=== PATIENT | female | born 1975 | race Caucasian/White ===

== ENCOUNTER 2025-01-16 10:09 | Inpatient (IN) | payer SELFPAY ==
[~2025-01-16] VITALS: Ht 170.1 cm; Wt 76.7 kg
[2025-01-16] VITALS (8 sets, daily range): BP systolic 121–179; BP diastolic 64–100
[~2025-01-16 10:09] MED LIST: ELIMITE 5%60 GM PO; VICODIN 5/500 505 MG PO
[2025-01-16] MEDS ORDERED: SODIUM CHLORIDE 0.9% 1,000 ML IV ONE ×2 (10:35→14:10)
[2025-01-16] MEDS ORDERED: Ondansetron Hydrochloride 4 MG/2 ML VIAL IV ONE ×3 (10:35→15:20)
[2025-01-16 10:54] LABS: BASO # 0.0 10*3/uL (0.0-0.1); BASO % 0.3 % (0.0-1.0); EOS # 0.1 10*3/uL (0.0-0.4); EOS % 0.5 % (1.0-4.0); MEAN CELL VOLUME 97.9 fl (81.0-99.0); MEAN CORPUSCULAR HGB 33.3 pg (27.0-31.0); MEAN PLATELET VOLUME 9.7 fl (9.6-12.3); MONO # 0.3 10*3/uL (0.1-1.0); MONO % 2.9 % (3.0-9.0); NEUT # 8.1 10*3/uL (2.3-7.9); NEUT % 76.3 % (47.0-73.0); NUCLEATED RED BLOOD CELL 0.0 % (0.0-0.0); NUCLEATED RED BLOOD CELL 0.0 10*3/uL (0.0-0.0); PLATELET COUNT AUTOMATED 274 10*3/uL (130-400); RED CELL DISTRI WIDTH 12.8 % (0-14.5)
[2025-01-16] MEDS ORDERED: IOHEXOL 300 MG/ML 100 ML VIAL IV ONE (10:55)
[2025-01-16 11:04] LABS: ACT PARTIAL THROMBO TIME 24.1 SECONDS (20.0-32.1)
[2025-01-16] MEDS ORDERED: diphenhydrAMINE hydrochloride 50 MG/ML VIAL IV ONE ×2 (11:10→20:00)
[2025-01-16] MEDS ORDERED: Metoclopramide Hydrochloride 10 MG/2 ML VIAL IV ONE ×2 (11:10→20:00)
[2025-01-16 11:15] LABS: BUN 10 mg/dl (9-23); SGPT/ALT 13 U/L (5-49)
[2025-01-16] MEDS ORDERED: Pantoprazole Sodium 80 MG,IV 1 EA in SYRINGE INFUSION 20 ML IV ONE (11:25)
[2025-01-16] MEDS ORDERED: Ondansetron Hydrochloride 4 MG/2 ML VIAL IV PRN (14:10)
[2025-01-16] MEDS ORDERED: BISACODYL 5 MG TAB PO PRN (14:10)
[2025-01-16] MEDS ORDERED: Acetaminophen/Hydrocodone 5 MG/325 MG TABLET PO PRN (14:10)
[2025-01-16] MEDS ORDERED: BISACODYL 10 MG SUPP R PRN (14:10)
[2025-01-16] MEDS ORDERED: ACETAMINOPHEN 325 MG TAB PO PRN (14:10)
[2025-01-16] MEDS ORDERED: ACETAMINOPHEN 650 MG SUPP R PRN (14:10)
[2025-01-16] MEDS ORDERED: TEMAZEPAM 15 MG CAP PO PRN (14:10)
[2025-01-16] MEDS ORDERED: Dexamethasone Sodium Phospha 4 MG/ML VIAL IV ONE (15:02)
[2025-01-16] MEDS ORDERED: PROPOFOL 200 MG/20 ML VIAL IV ONE (15:02)
[2025-01-16] MEDS ORDERED: Lidocaine Hydrochloride 2% 5 ML SDV IM ONE (15:02)
[2025-01-16] MEDS ORDERED: Ondansetron Hydrochloride 4 MG/2 ML VIAL ONE (15:36)
[2025-01-16] MEDS ORDERED: ACETAMINOPHEN 80 ML IV ONE (22:35)
[2025-01-17] VITALS: BP 153/70
[2025-01-17] MEDS ORDERED: SODIUM CHLORIDE 0.9% 1,000 ML IV SCH (05:05)
[2025-01-17 05:41] LABS: BUN 12 mg/dl (9-23); FREE T4 1.60 ng/dl (0.89-1.76); LDL CHOLESTEROL 107 mg/dL (9-159); SGPT/ALT 19 U/L (5-49)
[2025-01-17] MEDS ORDERED: SODIUM CHLORIDE 0.9% 1,000 ML IV ONE ×2 (05:44→23:10)
[2025-01-17 06:04] LABS: BASO # 0.0 10*3/uL (0.0-0.1); BASO % 0.1 % (0.0-1.0); EOS # 0.0 10*3/uL (0.0-0.4); EOS % 0.0 % (1.0-4.0); MEAN CELL VOLUME 96.9 fl (81.0-99.0); MEAN CORPUSCULAR HGB 33.2 pg (27.0-31.0); MEAN PLATELET VOLUME 10.4 fl (9.6-12.3); MONO # 1.0 10*3/uL (0.1-1.0); MONO % 6.7 % (3.0-9.0); NEUT # 10.9 10*3/uL (2.3-7.9); NEUT % 76.8 % (47.0-73.0); NUCLEATED RED BLOOD CELL 0.0 % (0.0-0.0); NUCLEATED RED BLOOD CELL 0.0 10*3/uL (0.0-0.0); PLATELET COUNT AUTOMATED 266 10*3/uL (130-400); RED CELL DISTRI WIDTH 12.9 % (0-14.5)
[2025-01-17 07:29] LABS: VITAMIN D, 25-HYDROXY 51.5 ng/mL (30-100)
[2025-01-17 08:00] VITALS: BP 124/68
[2025-01-17 12:00] VITALS: BP 136/72
[2025-01-17 16:00] VITALS: BP 134/65
[2025-01-17 20:00] VITALS: BP 138/75
[2025-01-17] MEDS ORDERED: SUCRALFATE 1 GM TAB PO SCH (23:05)
[2025-01-17] MEDS ORDERED: Promethazine Hydrochloride 25 MG/ML VIAL IV ONE (23:55)
[2025-01-18] VITALS (8 sets, daily range): BP systolic 128–194; BP diastolic 58–83
[2025-01-18 06:24] LABS: BASO # 0.0 10*3/uL (0.0-0.1); BASO % 0.2 % (0.0-1.0); EOS # 0.0 10*3/uL (0.0-0.4); EOS % 0.0 % (1.0-4.0); MEAN CELL VOLUME 99.2 fl (81.0-99.0); MEAN CORPUSCULAR HGB 33.1 pg (27.0-31.0); MEAN PLATELET VOLUME 10.7 fl (9.6-12.3); MONO # 0.4 10*3/uL (0.1-1.0); MONO % 3.0 % (3.0-9.0); NEUT # 11.0 10*3/uL (2.3-7.9); NEUT % 85.8 % (47.0-73.0); NUCLEATED RED BLOOD CELL 0.0 % (0.0-0.0); NUCLEATED RED BLOOD CELL 0.0 10*3/uL (0.0-0.0); PLATELET COUNT AUTOMATED 218 10*3/uL (130-400); RED CELL DISTRI WIDTH 12.9 % (0-14.5)
[2025-01-18] MEDS ORDERED: Metoclopramide Hydrochloride 10 MG/2 ML VIAL IV ONE (08:10)
[2025-01-18] MEDS ORDERED: hydrALAZINE hydrochloride 20 MG/ML VIAL IV ONE (17:50)
[2025-01-18] MEDS ORDERED: LISINOPRIL 5 MG TAB PO SCH (19:40)
[2025-01-19] VITALS: BP 137/78
[2025-01-19 06:39] LABS: BASO # 0.0 10*3/uL (0.0-0.1); BASO % 0.3 % (0.0-1.0); EOS # 0.1 10*3/uL (0.0-0.4); EOS % 1.3 % (1.0-4.0); MEAN CELL VOLUME 98.0 fl (81.0-99.0); MEAN CORPUSCULAR HGB 32.9 pg (27.0-31.0); MEAN PLATELET VOLUME 10.6 fl (9.6-12.3); MONO # 0.7 10*3/uL (0.1-1.0); MONO % 9.2 % (3.0-9.0); NEUT # 3.7 10*3/uL (2.3-7.9); NEUT % 49.4 % (47.0-73.0); NUCLEATED RED BLOOD CELL 0.0 % (0.0-0.0); NUCLEATED RED BLOOD CELL 0.0 10*3/uL (0.0-0.0); PLATELET COUNT AUTOMATED 207 10*3/uL (130-400); RED CELL DISTRI WIDTH 12.4 % (0-14.5)
[2025-01-19 08:00] VITALS: BP 130/75
[2025-01-19] MEDS ORDERED: LISINOPRIL 5 MG TAB PO SCH (10:00)
[2025-01-19] MEDS ORDERED: PROTONIX40 MG PO (11:42)
[2025-01-19] MEDS ORDERED: CARAFATE1 GM PO (11:42)
[2025-01-19] MEDS ORDERED: ZESTRIL10 MG PO (11:42)
== END 2025-01-19 12:45 | disposition home or self-care (01) | DRG 379 ==
LOC: ED 10:09 → EDHOLD 13:29 → 4E 13:29
PROVIDERS: Internal Medicine; Student in an Organized Health Care Education/Training Program; ADMIT Internal Medicine; ATTEND Internal Medicine
PROC: 0DJ08ZZ Inspection of Upper Intestinal Tract, Via Natural or Artificial Opening Endoscopic (ICD-10-PCS; principal; 2025-01-16)
DX: K29.01 Acute gastritis with bleeding (principal); K44.9 Diaphragmatic hernia without obstruction or gangrene; E87.8 Other disorders of electrolyte and fluid balance, not elsewhere classified; K26.4 Chronic or unspecified duodenal ulcer with hemorrhage; E27.9 Disorder of adrenal gland, unspecified; K57.31 Diverticulosis of large intestine without perforation or abscess with bleeding; E83.52 Hypercalcemia; R73.9 Hyperglycemia, unspecified; Z98.51 Tubal ligation status